=== PATIENT | female | born 1945 | race Caucasian/White ===

== ENCOUNTER 2018-03-25 15:35 | Observation (INO) | payer MEDICARE ==
[~2018-03-25] VITALS: Ht 157.5 cm; Wt 89.0 kg
--- OUTSIDE RECORDS SUMMARY | 2018-03-25 15:45 | XMS REPORT | Summary of Care ---
Author Author [facility] Address Unknown Phone Unavailable Encounter HQ Encntr_alias(FIN) [id number] Date(s): 04/10/17 - 04/10/17 [facility] [address] [place] [phone] Encounter Diagnosis Encounter for screening mammogram for malignant neoplasm of breast (Final) - 04/11/17 Mastodynia (Final) - Discharge Disposition: Home or Self Care Attending Physician: Dakota Hidalgo MD Vital Signs No data available for this section Problem List No data available for this section Allergies, Adverse Reactions, Alerts No data available for this section Medications No data available for this section Results No data available for this section Immunizations No data available for this section Procedures No data available for this section Social History No data available for this section Assessment and Plan No data available for this section
--- OUTSIDE RECORDS SUMMARY | 2018-03-25 15:45 | XMS REPORT | Continuity of Care Document ---
Author Author [facility] Organization Interface Address Unknown Phone Unavailable Problems Problem Status Onset Date Classification Date Reported Comments Source Encounter for screening mammogram for malignant neoplasm of breast 04/12/2017 07/17/2017 [facility] Z12.31 - ENCNTR SCREEN MAMMOGRAM FOR MA Active 01/14/2016 [facility] Mastodynia 07/17/2017 [facility] Medications Medication Details Route Status Patient Instructions Ordering Provider Order Date Source Allergies, Adverse Reactions, Alerts Substance Category Reaction Severity Reaction type Status Date Reported Comments Source Immunizations Immunization Date Given Site Status Last Updated Comments Source Results Order Name Results Value Reference Range Date Interpretation Comments Source Breast Mammo Scrn ESTELA w vera incl CAD MA Breast Mammo Scrn ESTELA w vera incl CAD MA BILATERAL DIGITAL SCREENING MAMMOGRAM 3D/2D WITH CAD: 04/10/2017 CLINICAL: /Screening. Bilateral breast pain. Annual. Current study was evaluated with a Computer Aided Detection (CAD) system. COMPARISON:Comparison is made to exams dated: 04/15/2016 mammogram, 01/23/2015 mammogram, 08/21/2013 mammogram, 09/10/2012 mammogram, 08/10/2012 mammogram, and 08/11/2011 mammogram - [facility]. TECHNIQUE: Digital Breast Tomosynthesis was performed and utilized for Interpretation. Current study was also evaluated with a Computer Aided Detection (CAD) system. FINDINGS: There are scattered fibroglandular densities in both breasts. There are benign scattered densities and calcifications in both breasts. There is a benign intramammary node in the right breast. No significant masses, calcifications, or other findings are seen in either breast. There has been no significant interval change. IMPRESSION: BENIGN RECOMMENDATION:There is no mammographic evidence of malignancy. A 1 year screening mammogram is recommended.(04/11/2018) Given history of breast pain, clinical follow-up is also recommended. If breast pain continues to be a concern, ultrasound could be considered. This exam was interpreted at [id number] for [facility]. Stuart Alejo M.D. mt/:04/11/2017 13:41:22 Dehairing Machine Tender(s): [facility] sent: BI-RADS 1/2 Mammogram BI-RADS: 2 Benign 04/10/2017 - - Read by: Stuart Alejo MD Dictated Date/time: 04/11/17 13:41 Electronically Signed by: Stuart Alejo MD 04/11/17 13:41 FINAL REPORT [facility] Bone Density DXA [employer] Energy MA Bone Density DXA Dual Energy MA - Bone Density DXA [employer] Energy MA BONE DENSITY EVALUATION: 05/05/2016 CLINICAL DATA: Post menopausal. RISK FACTORS: race. FINDINGS: Bone density evaluation was performed 05/05/2016 on the AP L1-L4 region of spine using a Hologic unit. The BMD average for the exam is 1.306 g/cm2. The T-score is 2.40 and the Z-score is 4.60. These values indicate 163.0% for age-matched controls. This matches the World Health Organization's criteria for normal bone density and places the patient within normal limits of fracture risk. An additional bone density evaluation was performed 05/05/2016 on the right femur neck using a Hologic unit. The BMD average for the exam is 0.819 g/cm2. The T-score is -0.30 and the Z-score is 1.60. These values indicate 129.0% for age-matched controls. This matches the World Health Organization's criteria for normal bone density and places the patient within normal limits of fracture risk. An additional bone density evaluation was performed 05/05/2016 on the right hip using a Hologic unit. The BMD average for the exam is 0.900 g/cm2. The T-score is -0.30 and the Z-score is 1.30. These values indicate 121.0% for age-matched controls. This matches the World Health Organization's criteria for normal bone density and places the patient within normal limits of fracture risk. An additional bone density evaluation was performed 05/05/2016 on the left femur neck using a Hologic unit. The BMD average for the exam is 0.891 g/cm2. The T- score is 0.40 and the Z-score is 2.30. These values indicate 140.0% for age- matched controls. This matches the World Health Organization's criteria for normal bone density and places the patient within normal limits of fracture risk. An additional bone density evaluation was performed 05/05/2016 on the left hip using a Hologic unit. The BMD average for the exam is 0.973 g/cm2. The T-score is 0.30 and the Z-score is 1.90. These values indicate 131.0% for age-matched controls. This matches the World Health Organization's criteria for normal bone density and places the patient within normal limits of fracture risk. IMPRESSION: BONE DENSITY WITHIN NORMAL LIMITS Patient is at normal risk for fracture. Compared to BMD of prior exam of 7.5.2013: -There has been a decrease in bone density in the lumbar spine (total, L1-L4) of - 0.8%. (Not statistically significant) -There has been an increase in bone density in the left femoral neck of +6.1%. (Statistically significant, current T score=+ 0.4 ; previous T score=- 0.1) -There has been a decrease in bone density in the right femoral neck of - 2.5%. (Not statistically significant) This exam was dictated and interpreted by [address] [place] [address], [place] [id number]. Stuart Alejo M.D. mt/:05/06/2016 10:15:08 Dehairing Machine Tender: Dinora Charles, [facility] 05/05/2016 - - Read by: Stuart Alejo MD Dictated Date/time: 05/06/16 10:15 Electronically Signed by: Stuart Alejo MD 05/06/16 10:15 FINAL REPORT [facility] Breast Mammo Scrn ESTELA incl CAD MA Breast Mammo Scrn ESTELA incl CAD MA - BREAST MAMMO SCRN ESTELA INCL CAD MA BILATERAL DIGITAL SCREENING MAMMOGRAM WITH CAD: 04/15/2016 CLINICAL: Screening. Current study was evaluated with a Computer Aided Detection (CAD) system. Comparison is made to exams dated: 01/23/2015 mammogram, 08/21/2013 mammogram, 09/10/2012 mammogram, 09/10/2012 ultrasound, 08/10/2012 mammogram and 08/11/2011 [facility]ogram - [facility]. There are scattered fibroglandular densities in both breasts. There are benign scattered calcifications and densities in both breasts. There also is a benign intramammary node in the right breast. Additionally there is a benign nodule in the left breast. No significant masses, calcifications, or other findings are seen in either breast. There has been no significant interval change. IMPRESSION: BENIGN There is no mammographic evidence of malignancy. A 1 year screening mammogram is recommended. Stuart Alejo M.D. mt/penpraveen:04/15/2016 11:41:18 Dehairing Machine Tender: Jacque Thomson, [facility] This exam was dictated and interpreted by [id number] for [facility]. letter sent: Normal exam Mammogram BI-RADS: 2 Benign 04/15/2016 - - Read by: Stuart Alejo MD Dictated Date/time: 04/15/16 11:41 Electronically Signed by: Stuart Alejo MD 04/15/16 11:41 FINAL REPORT [facility] Vital Signs Vital Sign Value Date Comments Source Encounters Location Location Details Encounter Type Encounter Number Reason For Visit Attending Provider ADM Date DC Date Status Source [facility] [id number] Dakota Gwen 04/15/2016 04/16/2016 [facility] [id number] Dakota Gwen 05/05/2016 05/06/2016 [facility] [id number] Dakota Raven 04/10/2017 04/11/2017 [facility] Procedure Code Date Perfomer Comments Source
--- OUTSIDE RECORDS SUMMARY | 2018-03-25 15:45 | XMS REPORT | Summary of Care ---
Author Author [facility] Address Unknown Phone Unavailable Encounter HQ Encntr_alias(FIN) [id number] Date(s): 05/05/16 - 05/05/16 [facility] Outpatient Imaging - [employer] [facility] [address] [place] [phone] [place] [phone] Discharge Disposition: Home or Self Care Attending [...]
--- OUTSIDE RECORDS SUMMARY | 2018-03-25 15:45 | XMS REPORT | Summary of Care ---
Author Author [facility] Address Unknown Phone Unavailable Encounter HQ Encntr_aliisidra(FIN) [id number] Date(s): 04/15/16 - 04/15/16 [facility] Outpatient Imaging - [facility] [facility] [address] [place] [phone] [place] [phone] Discharge Disposition: Home or Self Care Attending [...]
--- OUTSIDE RECORDS SUMMARY | 2018-03-25 15:46 | XMS REPORT ---
Author Author [facility] Address Unknown Phone Unavailable Care Team Providers Care Regional Business Manager Name Role Phone Unavailable Unavailable Payers Payer Name Policy Type Policy Number Effective Date Expiration Date Problems This patient has no known problems. Allergies, Adverse Reactions, Alerts Allergy Name Allergy Type Status Severity Reaction(s) Onset Date Inactive Date Treating Clinician Comments Penicillins DA Active NE 2018-02-12 00:00:00 Penicillins DA Active NE 2015-11-27 00:00:00 Medications This patient has no known medications.
[2018-03-25] MEDS ORDERED: SODIUM CHLORIDE 0.9% 1000ML 1,000 ML IV STA (16:31)
[2018-03-25 16:53] LABS: BASOPHILS # (AUTO) 0.1 (0.0-0.1); BASOPHILS % 0.5 % (0.0-1.0); EOSINOPHILS # (AUTO) 0.2 (0.0-0.4); HEMATOCRIT 34.5 % (34.2-44.1); LYMPHOCYTES # (AUTO) 1.6 (1.0-3.2); LYMPHOCYTES % 6.7 % (18.0-39.1); MEAN CORPUSCULAR HEMOGLOBIN 29.8 pg (28-32); MEAN CORPUSCULAR HGB CONC 34.8 g/dL (31-35); MEAN CORPUSCULAR VOLUME 85.6 fL (81-99); MONOCYTES # (AUTO) 1.4 (0.2-0.8); MONOCYTES % 5.6 % (4.4-11.3); NEUTROPHILS % 85.4 % (38.7-80.0); PLATELET COUNT 324 x10e3/uL (140-360); RED BLOOD COUNT 4.03 x10e6/uL (3.6-5.1); RED CELL DISTRIBUTION WIDTH 12.1 % (11.7-14.4)
[2018-03-25 17:09] LABS: POTASSIUM 4.3 mmol/L (3.6-5.1); SODIUM 128 mmol/L (136-144)
[2018-03-25 17:10] LABS: ANION GAP 16.3 mmol/L (8-16); BLOOD UREA NITROGEN 22 mg/dL (8-26); BUN/CREATININE RATIO 18 (6-25); CARBON DIOXIDE 26 mmol/L (22-32); CHLORIDE 90 mmol/L (101-111); CREATININE, SERUM 1.2 mg/dL (0.6-1.1); EST GLOMERULAR FILTRATION RATE 44 ML/MIN (60-); GLUCOSE 198 mg/dL (74-118); INR 0.94; PARTIAL THROMBOPLASTIN TIME 29.3 seconds (23.8-35.5); PROTHROMBIN TIME 13.4 seconds (11.9-14.5)
[2018-03-25 17:26] LABS: ALANINE AMINOTRANSFERASE 19 IU/L (0-55); ALBUMIN 3.7 g/dL (3.5-5.0); ALBUMIN/GLOBULIN RATIO 1.4 (0.8-2.0); ALKALINE PHOSPHATASE 67 IU/L (40-150); CREATINE KINASE 301 IU/L (29-168)
[2018-03-25 17:31] LABS: BAND NEUTROPHILS % (MANUAL) 3 %; EOSINOPHILS % (MANUAL) 1 % (0-7); LYMPHOCYTES % (MANUAL) 6 % (19-48); MONOCYTES % (MANUAL) 3 % (3.4-9.0); NEUTROPHILS % (MANUAL) 87 % (40-74); PLATELET ESTIMATE ADEQUATE; PLATELET MORPHOLOGY COMMENT NORMAL; RBC MORPHOLOGY COMMENT NORMAL
[2018-03-25] MEDS ORDERED: IOPAMIDOL 370 MG/ML 200 ML INFUS..BTL INJ ONE (18:02)
[2018-03-25] MEDS ORDERED: SODIUM CHLORIDE 0.9% 50ML 50 ML ONE (18:02)
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
[2018-03-25 18:30] LABS: CLARITY,URINE CLEAR (CLEAR); COLOR,URINE STRAW (YELLOW)
[2018-03-25 18:31] LABS: BILIRUBIN,URINE NEGATIVE (NEGATIVE); KETONES,URINE NEGATIVE (NEGATIVE); LEUKOCYTE ESTERASE ,URINE NEGATIVE (NEGATIVE); NITRITE,URINE NEGATIVE (NEGATIVE); PROTEIN,URINE DIPSTICK NEGATIVE (NEGATIVE); URINE UROBILINOGEN 0.2 mg/dL (0.2 - 1)
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
[2018-03-25 18:50] LABS: EPITHELIAL CELLS,URINE RARE /LPF
[2018-03-25 18:51] LABS: HYALINE CASTS 0-1 (0-1); WBC,URINE (MAN) 0-5 /HPF (0-5)
[2018-03-25] MEDS ORDERED: MORPHINE SULFATE INJ 4 MG/ML INJ 1ML IV PRN (19:15)
[2018-03-25] MEDS ORDERED: IPRATROPIUM BROMIDE 0.02% 2.5 ML NEB NEB PRN (19:15)
[2018-03-25] MEDS ORDERED: ONDANSETRON HCL INJ 2MG/ML 2ML 2 MG/ML VIAL IV PRN (19:15)
[2018-03-25] MEDS ORDERED: LEVALBUTEROL HCL SOLN NEBU 0.63 MG/3 ML NEB INH PRN (19:15)
[2018-03-25] MEDS ORDERED: SODIUM CHLORIDE 0.9% 1000ML 1,000 ML ONE (19:25)
--- NOTE | 2018-03-25 19:25 | NUR ---
WALKING ROUNDS WITH MARLA GARLAND DAY SHIFT NURSE.
[2018-03-25] MEDS: SODIUM CHLORIDE 0.9% 1000ML 1,000 ML IV SCH (19:29)
[2018-03-25] MEDS ORDERED: DEXTROSE 50% SYRINGE 50 ML IV PRN (19:30)
[2018-03-25 20:10] VITALS: BP 126/60
--- NOTE | 2018-03-25 20:10 | NUR ---
patient is a new admit that arrived via stretcher. patient is awake and oriented. patient has been helped into the bed. bed is in the lowest position and call jean baptiste is within reach. will continue to monitor patient.
[2018-03-25 21:10] VITALS: BP 126/60
[2018-03-25] MEDS: INSULIN LISPRO 100 UNIT/1 ML 3ML VIAL SQ SCH (21:44)
[2018-03-25] MEDS ORDERED: ASPIRIN81 MG PO (21:48)
[2018-03-25] MEDS ORDERED: METFORMIN HCL500 MG PO (21:48)
[2018-03-25] MEDS ORDERED: METOPROLOL TART25 MG PO (21:48)
[2018-03-26 00:35] VITALS: BP 116/56
[2018-03-26 04:54] VITALS: BP 130/68
[2018-03-26 06:03] LABS: BASOPHILS % 0.4 % (0.0-1.0); EOSINOPHILS # (AUTO) 0.1 (0.0-0.4); EOSINOPHILS % 0.6 % (0.0-6.0); HEMATOCRIT 27.7 % (34.2-44.1); HEMOGLOBIN 9.7 g/dL (12.0-16.0); LYMPHOCYTES # (AUTO) 1.9 (1.0-3.2); LYMPHOCYTES % 18.6 % (18.0-39.1); MEAN CORPUSCULAR HEMOGLOBIN 30.5 pg (28-32); MEAN CORPUSCULAR VOLUME 87.1 fL (81-99); MONOCYTES # (AUTO) 1.2 (0.2-0.8); MONOCYTES % 11.6 % (4.4-11.3); NEUTROPHILS # (AUTO) 6.9 (2.1-6.9); NEUTROPHILS % 68.4 % (38.7-80.0); PLATELET COUNT 235 x10e3/uL (140-360); RED BLOOD COUNT 3.18 x10e6/uL (3.6-5.1); RED CELL DISTRIBUTION WIDTH 12.2 % (11.7-14.4)
[2018-03-26 06:38] LABS: ALANINE AMINOTRANSFERASE 19 IU/L (0-55); ALBUMIN 3.4 g/dL (3.5-5.0); ALBUMIN/GLOBULIN RATIO 1.4 (0.8-2.0); ALKALINE PHOSPHATASE 54 IU/L (40-150); ANION GAP 14.8 mmol/L (8-16); BLOOD UREA NITROGEN 14 mg/dL (7-26); BUN/CREATININE RATIO 16 (6-25); CALCIUM 8.5 mg/dL (8.4-10.2); CARBON DIOXIDE 21 mmol/L (22-29); CHLORIDE 97 mmol/L (98-107); CREATININE, SERUM 0.88 mg/dL (0.57-1.11); EST GLOMERULAR FILTRATION RATE > 60 ML/MIN (60-); GLUCOSE 144 mg/dL (74-118); POTASSIUM 3.8 mmol/L (3.5-5.1); SODIUM 129 mmol/L (136-145)
--- NOTE | 2018-03-26 06:56 | NUR ---
report given to day nurse. patient is resting in bed. bed is in lowest position and call jean baptiste is within reach.
[2018-03-26 08:21] VITALS: BP 168/78
[2018-03-26] MEDS: INSULIN LISPRO 100 UNIT/1 ML 3ML VIAL SQ SCH ×3 (08:30→17:00)
[2018-03-26] MEDS ORDERED: DIOVAN HCT 3201 EACH PO (08:44)
[2018-03-26] MEDS ORDERED: DETROL LA4 MG PO (08:44)
[2018-03-26] MEDS ORDERED: METFORMIN HCL500 M2 PO (08:44)
[2018-03-26] MEDS ORDERED: PROAIR HFA INH8.5 GM INH (08:44)
[2018-03-26] MEDS ORDERED: ZETIA10 MG PO (08:44)
[2018-03-26] MEDS ORDERED: METOPROLOL TART25 MG PO (08:44)
[2018-03-26 09:00] VITALS: BP 168/78
[2018-03-26] MEDS: SODIUM CHLORIDE 0.9% 1000ML 1,000 ML IV SCH ×2 (09:00→15:15)
[2018-03-26] MEDS ORDERED: ALBUTEROL SULFATE HFA 8GM INHALATION AEROSOL INH PRN (10:30)
[2018-03-26] MEDS ORDERED: ACETAMINOPHEN/CODEINE 300MG - 30MG TAB PO PRN (10:30)
[2018-03-26] MEDS ORDERED: VALSARTAN 160 MG TAB PO SCH (11:00)
[2018-03-26] MEDS ORDERED: HYDROCHLOROTHIAZIDE 25 MG TAB PO SCH (11:00)
[2018-03-26 11:34] LABS: CREATINE KINASE MB 5.8 ng/mL (0-5.0)
[2018-03-26 12:34] VITALS: BP 148/65
[2018-03-26] MEDS ORDERED: TOLTERODINE TARTRATE 4 MG CAPCR PO SCH (12:50)
[2018-03-26 16:45] LABS: ANION GAP 13.3 mmol/L (8-16); CALCIUM 8.4 mg/dL (8.4-10.2); CREATININE, SERUM 1.14 mg/dL (0.57-1.11); POTASSIUM 4.3 mmol/L (3.5-5.1)
[2018-03-26 16:57] VITALS: BP 147/69
[2018-03-26] MEDS ORDERED: METOPROLOL TARTRATE 25 MG TAB PO SCH (17:00)
--- NOTE | 2018-03-26 17:40 | NUR ---
spoke with md tracie grey regarding bmp reading of 1600. orders to send pt home at this time given .
[2018-03-26] MEDS ORDERED: TYLENOL WITH C1 EACH PO (17:43)
--- NOTE | 2018-03-26 18:02 | NUR ---
discharge instructions and prescriptions given, pt and daughter verbalized understanding. 2 iv dc, pressure dressing applied and taped. pt tele monitoring off. pt is ready for dc. pt getting dressed at this time.
--- NOTE | 2018-03-26 18:12 | NUR ---
pt off unit to home via wheel chair
[2018-03-27] MEDS ORDERED: ASPIRIN 81 MG CHEW TAB PO SCH (09:00)
[2018-03-27] MEDS ORDERED: TOLTERODINE TARTRATE 4 MG CAPCR PO SCH (09:00)
[2018-03-27] MEDS ORDERED: EZETIMIBE 10 MG TAB PO SCH (09:00)
[2018-03-27] MEDS ORDERED: VALSARTAN 160 MG TAB PO SCH (09:00)
== END 2018-03-26 18:14 | disposition home or self-care (01) ==
LOC: ER 15:43 → ERHOLD 19:57 → MED/SURG 20:06
DX: S20.01XA Contusion of right breast, initial encounter (principal); S20.212A Contusion of left front wall of thorax, initial encounter; S30.1XXA Contusion of abdominal wall, initial encounter; V43.52XA Car driver injured in collision with other type car in traffic accident, initial encounter; Y93.89 Activity, other specified; I10 Essential (primary) hypertension; E11.9 Type 2 diabetes mellitus without complications; Z83.3 Family history of diabetes mellitus; I44.7 Left bundle-branch block, unspecified; E87.1 Hypo-osmolality and hyponatremia; Z88.0 Allergy status to penicillin; Z88.8 Allergy status to other drugs, medicaments and biological substances; Z79.84 Long term (current) use of oral hypoglycemic drugs; Y92.410 Unspecified street and highway as the place of occurrence of the external cause
CPT/HCPCS: 36415; 70450; 71260; 72125; 74177; 80048; 80053 ×2; 81001; 82550 ×2; 82553 ×2; 82948 ×2; 84484 ×2; 85025 ×2; 85610; 85730; 86850; 86900; 93005; 94640; 99284; G0378 ×2; J2270; J2405; J7030 ×2; Q9967